=== PATIENT | male | born 1960 | race African-American/Black ===

== ENCOUNTER 2020-04-21 18:09 | Inpatient (IN) | payer OTHER ==
[~2020-04-21] VITALS: Ht 182.9 cm; Wt 77.0 kg
--- NOTE | 2020-04-21 18:09 | NUR ---
PT TO ROOM VIA EMS STRETCHER, HE REMAINS UNRESPONSIVE.
[2020-04-21 18:38] LABS: HEMATOCRIT 39.2 % (39.0-50.0); HEMOGLOBIN 12.2 g/dl (14.0-18.0); IMMATURE GRANULOCYTES 0.4 % (0.0-5.0); MEAN CELL VOLUME 95.4 fL CALC (80.0-100.0); MEAN CORPUSCULAR HGB 29.7 pG CALC (26.0-32.0); MEAN CORPUSCULAR HGB CONC 31.1 g/dL CAL (32.0-36.0); NEUT# 18.48 thou/uL (1.82-7.42); RED BLOOD COUNT 4.11 mill/uL (4.70-6.10); RED CELL DISTRI WIDTH 12.7 % (11.5-15.5)
--- NOTE | 2020-04-21 18:48 | NUR ---
FLUIDS INITIATED PT CLEANED AND CHANGED PT WAS COVERED IN URINE
[2020-04-21 18:51] LABS: ALBUMIN 4.1 g/dL (3.2-5.0); ALKALINE PHOSPHATASE 66 u/l (38-126); ANION GAP 15 (6-22 (CALC)); BILIRUBIN, TOTAL 0.5 mg/dL (0.0-1.4); BUN 13 mg/dL (9-20); BUN/CREATININE RATIO 12 (12-20 (CALC)); CARBON DIOXIDE 19 mmol/l (22-30); CHLORIDE 113 mmol/l (95-108); CPK 274 u/l (52-200); CREATININE 1.1 mg/dL (0.7-1.3); GFR > 60 ML/MIN (>=60 (CALC)); GFR FOR AFR.AMER. > 60 ML/MIN (>=60 (CALC)); LIPASE 60 u/l (23-300); POTASSIUM 4.2 mmol/l (3.5-5.1); SGOT/AST 25 u/l (17-59); SODIUM 143 mmol/l (137-146); TOTAL PROTEIN 7.6 g/dL (6.3-8.2)
[2020-04-21 20:18] LABS: INTERNATIONAL NORMALIZED RATIO 1.1 RATIO (0.7-1.3)
--- NOTE | 2020-04-21 20:40 | NUR ---
SPINTAL TAP INITIATED WITH MD AT BEDSIDE
--- NOTE | 2020-04-21 21:10 | NUR ---
LUMBAR SPINE TAP COMPLETED AT BEDSIDE AND COLLECTED. PT DID REQUIRE TWO PEOPLE TO HOLD PT STILL HE WAS MOVING A LOT AND NOT FOLLOWING DIRECTIONS.
--- NOTE | 2020-04-21 21:25 | NUR ---
ANTIBIOTICS WERE GIVEN LATE WE REQUIRED SPINAL TAP BEFORE INITIATING MEDICATIONS
--- NOTE | 2020-04-21 21:35 | NUR ---
NURSE P REQUESTED UPDATE BE CALLED TO [phone]
--- NOTE | 2020-04-21 22:00 | NUR ---
REPORT GIVEN TO MIGUEL A COFFEY
--- NOTE | 2020-04-21 22:15 | NUR ---
RECEIVED REPORT. PT RESTING. NO SEIZURE ACTIVITY. PT AROUSES AND FOLLOWS COMMANDS BUT REMAINS NON-VERBAL. OSCAR. GRASP EQUAL. RESP EASY REG. NAD. ANTIBIOTICS INFUSING. PT SHACKLED TO BED WITH 2 GUARDS AT BEDSIDE.
--- NOTE | 2020-04-21 23:33 | NUR ---
PT UNABLE TO GIVE URINE SAMPLE. ASHLEIGH YEAGER RN INSERTED BEAULIEU TO GRAVITY DRAINAGE. CLEAR YELLOW URINE. TO URINE METER.
[2020-04-22] VITALS (15 sets, daily range): BP systolic 110–137; BP diastolic 62–76
[2020-04-22 00:07] LABS: URINE BILIRUBIN - DIPSTICK NEGATIVE (NEGATIVE); URINE BLOOD DIPSTICK MODERATE (NEGATIVE); URINE COLOR YELLOW; URINE GLUCOSE - DIPSTICK NEGATIVE (NEGATIVE); URINE KETONE NEGATIVE (NEGATIVE); URINE NITRITE - DIPSTICK NEGATIVE (Negative); URINE PH 5.5 (4.5-8.0); URINE PROTEIN - DIPSTICK NEGATIVE (NEG-TRACE); URINE SPECIFIC GRAVITY >=1.030; URINE UROBILINOGEN - DIPSTICK 0.2 E.U./dL (0.2)
[2020-04-22 00:08] LABS: URINE BACTERIA FEW hpf; URINE EPITHELIAL CELLS FEW EPI/hpf (0-FEW); URINE LEUK ESTERASE NEGATIVE (NEGATIVE)
--- NOTE | 2020-04-22 01:02 | NUR ---
PENDING ADMISSION. COVID SWAB OBTAINED
--- NOTE | 2020-04-22 02:00 | NUR ---
NO CHANGE IN NEURO STATUS. PENDING ADMISSION
--- NOTE | 2020-04-22 03:00 | NUR ---
RECEIVED FROM ER VIA STETCHER INTO ICU BED 3. PATIENT IS AWAKE, LOOKS TO SPEAKER. NON-VERBAL AT THIS TIME. FOLLOWS DIRECTIONS AND ABLE TO ASSIST WITH MOVING FROM STRETCHER TO BED. RESP NON-LABORED. RA O2 ST 100% RESP EVEN AND ULABORED. LUNGS CLEAR THROUGHOUT. IV IN RAC WITH NS INFUSING AT 125 ML/HR. BEAULIEU DRAINS CLEAR YELLOW URINE. ELECTRIC METER TECHNICIAN SHOWS SR. EXPLAINED PLAN OF CARE. CALL RUTHERFORD IN REACH.PATIENT IS INMATE AT CTI 2 GUARDS IN ATTENDANCE. WILDT IS ON DROPLET PRECAUTIONS FO RR/O MENINGITIS.
--- NOTE | 2020-04-22 03:05 | NUR ---
REPORT TO ERLINDA GUEVARA/ICU
--- NOTE | 2020-04-22 03:30 | NUR ---
PT TO ICU VIA STRETCHER WITH BEAULIEU/PORTABLE MONITOR. SHACKLED TO BED BY 2 CUFFS. ESCORTED BY 2 SHELTER GUARDS.
--- NOTE | 2020-04-22 03:47 | NUR ---
PHARM CALLED BUT NOT ABLE TO PROFILE THE ZOVIRAX. CARMNE IN ICU NOTIFIED TO YAMIL GUEVARA.
--- NOTE | 2020-04-22 03:49 | NUR ---
REPORT RECEIVED. ANTIBIOTICS INFUSING.
--- NOTE | 2020-04-22 04:00 | NUR ---
VSS. MONITOR SR.
--- NOTE | 2020-04-22 06:00 | NUR ---
PATIENT CONTINUES TO REST QUIETLY. VSS. SR ON MONITOR. NS INFUSING AT 125 ML/HR. GOOD URINE OUTPUT.
[2020-04-22 06:05] LABS: HEMATOCRIT 34.2 % (39.0-50.0); IMMATURE GRANULOCYTES 0.6 % (0.0-5.0); MEAN CELL VOLUME 93.7 fL CALC (80.0-100.0); MEAN CORPUSCULAR HGB 30.1 pG CALC (26.0-32.0); MEAN CORPUSCULAR HGB CONC 32.2 g/dL CAL (32.0-36.0); NEUT# 17.18 thou/uL (1.82-7.42); RED BLOOD COUNT 3.65 mill/uL (4.70-6.10); RED CELL DISTRI WIDTH 12.4 % (11.5-15.5)
[2020-04-22 06:25] LABS: ALKALINE PHOSPHATASE 50 u/l (38-126); ANION GAP 10 (6-22 (CALC)); BUN 8 mg/dL (9-20); BUN/CREATININE RATIO 10 (12-20 (CALC)); CARBON DIOXIDE 22 mmol/l (22-30); CHLORIDE 110 mmol/l (95-108); CREATININE 0.8 mg/dL (0.7-1.3); GFR > 60 ML/MIN (>=60 (CALC)); GFR FOR AFR.AMER. > 60 ML/MIN (>=60 (CALC)); POTASSIUM 3.8 mmol/l (3.5-5.1); SODIUM 139 mmol/l (137-146)
[2020-04-22 06:32] LABS: ALBUMIN 3.2 g/dL (3.2-5.0); SGOT/AST 51 u/l (17-59)
--- NOTE | 2020-04-22 06:45 | NUR ---
REPORT RECEIVED FROM JOCELYN COFFEY. CARE ASSUMED.
--- NOTE | 2020-04-22 07:15 | NUR ---
PT RESTING IN BED WITH EYES CLOSED AT THIS TIME. PT OPENS EYES TO VERBAL STIMULI. PT IS ALERT AND ORIENTED TO SELF ONLY. IV PATENT X1. CALL LIGHT IN REACH. WILL CONTINUE TO MONITOR
--- NOTE | 2020-04-22 07:45 | NUR ---
PHONED [facility] SPOKE WITH NURSE LAMB. PT DOES HAVE A SEIZURE DISORDER AND IS ON KEPPRA 500MG BID. NURSE STATES THAT PT HAD K2 (STICK) ON PERSON AND WAS GIVEN NARCAN.
--- NOTE | 2020-04-22 08:08 | NUR ---
LAB AT BEDSIDE AT THIS TIME FOR REPEAT LACTIC.
--- NOTE | 2020-04-22 10:16 | NUR ---
PT IN BED WITH EYES CLOSED. RESP ARE EVEN AND UNLABORED. NO DISTRESS NOTED. CALL LIGHT IN REACH. WILL CONTINUE TO MONITOR.
--- NOTE | 2020-04-22 12:03 | NUR ---
S: DAVE QUIGLEY is a 60 M who presents with unknown fever and seizure. He has a history of seizures. All medications in patient's chart were reviewed. O: VS: BP 121/62 mm/Hg, P 72 bpm, RR 18 breaths/min, T 98.8 F W 77 kg, HT 72 inches, Scr= 0.8 mg/dL, CrCl= 109.6 ml/min A: Blood culture is pending. CSF culure prelimanry is no growth. P: Patient is on ceftriaxone 2g IV BID and acyclovir 800 mg IV Q8H. Vancomycin ordered for pharmacy to dose. Start Vancomycin 1g IV Q8H. Vancomycin trough is drawn before the 4th dose on 04/23/20 at 1330. Vancomycin goal trough is between 15-20 mcg/ml. Pharmacy will follow and or advise on antibiotics use as needed.
--- NOTE | 2020-04-22 12:07 | NUR ---
PT SET UP FOR NOON MEAL AT THIS TIME. PT SLEEPING AND NOT WANTING TO EAT. TRAY LEFT AT BEDSIDE. VSS ON MONITOR.
--- NOTE | 2020-04-22 13:04 | NUR ---
THIS NURSE INTO ROOM. PT AWAKENS TO VERBAL STIMULI. PT ABLE TO STATE NAME. MONTH AND DAY OF . PT KNOWS THAT HE IS IN A HOSPITAL AND THAT HE RESIDES IN A RETIREMENT, PT IS NOT ABLE TO GIVE NAME OF FACILITY NOR CITY AND STATE. PT UNABLE TO GIVE CURRENT MONTH AND YEAR. CALL LIGHT IN REACH. WILL CONTINUE TO MONITOR,.
--- NOTE | 2020-04-22 15:00 | NUR ---
PT RESTING IN BED WITH EYES CLOSED. RESP ARE EVEN AND UNLABORED. NO DISTRESS NOTED. CALL LIGHT IN REACH. WILL CONTINUE TOMONTIOR.
--- NOTE | 2020-04-22 16:00 | NUR ---
PT RESTING IN BED WITH EYE CLOSED. RESP ARE EVEN AND UNLABORED. NO DISTRESS NTOED.
--- NOTE | 2020-04-22 18:03 | NUR ---
PT SITTING UP IN BED EATING DINNER. RESP ARE EVEN AND UNLABORED. NO DISTRESS NOTED CALL LIGHT IN REACH. WILL CONTINUE TO MONITOR.
--- NOTE | 2020-04-22 20:30 | NUR ---
PATIENT IS AWAKE ON ROUNDS. SITTING IN BED IN SEMI-FOWLERS POSITION. ALERT AND ORIENTED X3. SPEECH IS CLEAR. FOLLOWS DIRECTIONS. VSS. RESP NON-LABORED. LUNGS CLEAR. NS INFUSING AT 125 ML/HR INTO RAC IV SITE. MONITOR SHOWS SR. EXPLAINED PLAN OF CAR.E DENIES NEEDS AT THIS TIME. CALL RUTHERFORD IN REACH.
--- NOTE | 2020-04-22 22:00 | NUR ---
WATCHING TV. NO COMPLAINTS VOICED.
--- NOTE | 2020-04-22 22:55 | NUR ---
TYLENOL 650 MG PO GIVEN FOR C/O HEADACHE.
[2020-04-23] VITALS (11 sets, daily range): BP systolic 126–148; BP diastolic 68–99
--- NOTE | 2020-04-23 | NUR ---
DOZES ON AND OFF. RESP NON-LABORED. VSS. SB-SR ON MONITOR.
--- NOTE | 2020-04-23 02:00 | NUR ---
NO CHANGES TO REPORT.
--- NOTE | 2020-04-23 04:00 | NUR ---
RESTING WITH EYES CLOSED. RESP EVEBN AND UNLABORED. VSS. SB-SR ON MONITOR. NS CONTINUES TO INFUSE AT 125 ML/HR INTO RAC IV SITE.
[2020-04-23 06:24] LABS: HEMATOCRIT 34.1 % (39.0-50.0); HEMOGLOBIN 10.9 g/dl (14.0-18.0); MEAN CELL VOLUME 93.9 fL CALC (80.0-100.0); RED BLOOD COUNT 3.63 mill/uL (4.70-6.10); RED CELL DISTRI WIDTH 12.4 % (11.5-15.5)
[2020-04-23 06:55] LABS: ALKALINE PHOSPHATASE 45 u/l (38-126); ANION GAP 9 (6-22 (CALC)); BUN 8 mg/dL (9-20); BUN/CREATININE RATIO 10 (12-20 (CALC)); CARBON DIOXIDE 24 mmol/l (22-30); CHLORIDE 111 mmol/l (95-108); CREATININE 0.8 mg/dL (0.7-1.3); GFR > 60 ML/MIN (>=60 (CALC)); GFR FOR AFR.AMER. > 60 ML/MIN (>=60 (CALC)); POTASSIUM 3.7 mmol/l (3.5-5.1); SGOT/AST 70 u/l (17-59); SODIUM 140 mmol/l (137-146); TOTAL PROTEIN 5.7 g/dL (6.3-8.2)
--- NOTE | 2020-04-23 07:06 | NUR ---
PT REPORT RECEIVED FROM PUBLISHING SYSTEMS ANALYST. AWAKENS EASILY, FOLLOWS COMMANDS, ALERT/ORIENTED X3, PER PUBLISHING SYSTEMS ANALYST NO SEIZURE ACTIVITY IN LAST 24 HOURS, PT REMAINS ON KEPPRA, PT DOES HAVE HX OF SEIZURES. 2 GUARDS IN ROOM AT THIS TIME, LEFT LEG AND RIGHT WRIST REMAINS IN SHACKLES. IV FLUIDS INFUSING AT 125CC/HR, IV SITE HEALTHY. DENIES ANY COMPLAINT AT THIS TIME.
[2020-04-23 07:20] LABS: BILIRUBIN, TOTAL 1.7 mg/dL (0.0-1.4)
[2020-04-23] MEDS ORDERED: KEPPRA500 M2 PO (08:21)
--- NOTE | 2020-04-23 16:19 | NUR ---
SPOKE WITH NURSE AT [facility] AND INFORMED THEM THAT IF PT REMAINED STABLE TONIGHT THAT HE WOULD MOST LIKELY BE GOING HOME TOMORROW. PTS VITAL SIGNS STABLE. GUARDS REMAIN AT BEDSIDE. NO SEIZURE ACTIVITY NOTED ON THIS SHIFT AT THIS TIME.
--- NOTE | 2020-04-23 17:40 | NUR ---
NO SEIZURE ACTIVITY OBSERVED SO FAR ON MY SHIFT, GUARDS REMAIN AT BEDSIDE, PT IS SHACKLED TO BED WITH ONE FOOT AND ONE HAND. SITTING UP IN BED EATING DINNER TRAY AT THIS TIME, VITAL SIGNS REMAIN STABLE, PT REMAINS ALERT/ORIENTED X3.
--- NOTE | 2020-04-23 18:33 | NUR ---
PT ASKED FOR TYLENOL FOR A HEADACHE AND WAS GIVEN 650 MG. TYLENOL PER PRN ORDER.
--- NOTE | 2020-04-23 20:05 | NUR ---
PATIENT IS AWAKE, ORIENTED TO NAME/PLACE. ON RA, NO SOB NOTED. NURSE ASSESSMENT PERFORMED. NO NEEDS AT THIS TIME. LEFT EXTREMETIES SHACKLED TO BED, GOOD CIRULATION NOTED. BEAULIEU CATHETER INTACT, URINE CLEAR/YELLOW. SELF REPOSITIONS. NO COMPLAINTS OR NEEDS AT THIS TIME. 2 GUARDS AT BEDSIDE.
[2020-04-24] VITALS: BP 148/81
--- NOTE | 2020-04-24 00:20 | NUR ---
PATIENT RESTING WITH BLANKET OVER HEAD, LAYS ON HIS RIGHT SIDE. 2 GUARDS AT BEDSIDE.
--- NOTE | 2020-04-24 01:50 | NUR ---
PATIENT IS AWAKE, CONVERSATES WITH GUARDS.
[2020-04-24 02:00] VITALS: BP 136/75
[2020-04-24 04:00] VITALS: BP 134/70
--- NOTE | 2020-04-24 05:33 | NUR ---
PATROL INSPECTOR QING IN ROOM TO DRAW BLOOD, PATIENT COOPERATED FOR THAT, ALL OF A SUDDEN PATIENT STARTED TO RAISE HIS VOICE AT THE PATROL INSPECTOR, PATIENT ASKED PATROL INSPECTOR IF HE WAS GOING TO BE DISCHARGED, PATROL INSPECTOR REPORTED TO HIM HE NEEDED TO CHECK WITH HIS NURSE, AND PATIENT BECAME UPSET. I WALKED IN ROOM AND ANSWERED HIS QUESTION, PATIENT CALMED DOWN. BEAULIEU CATHETER WAS DISCONTINUED. PATIENT ABLE TO TOLERATE, URINAL PROVIDED, PATIENT AGREES. GUARDS AT BEDSIDE.
[2020-04-24 06:05] LABS: HEMATOCRIT 35.8 % (39.0-50.0); HEMOGLOBIN 11.4 g/dl (14.0-18.0); MEAN CELL VOLUME 92.7 fL CALC (80.0-100.0); MEAN CORPUSCULAR HGB 29.5 pG CALC (26.0-32.0); MEAN CORPUSCULAR HGB CONC 31.8 g/dL CAL (32.0-36.0); RED BLOOD COUNT 3.86 mill/uL (4.70-6.10); RED CELL DISTRI WIDTH 12.1 % (11.5-15.5)
[2020-04-24 06:28] LABS: ALKALINE PHOSPHATASE 55 u/l (38-126); ANION GAP 10 (6-22 (CALC)); BILIRUBIN, TOTAL 2.1 mg/dL (0.0-1.4); BUN 11 mg/dL (9-20); BUN/CREATININE RATIO 15 (12-20 (CALC)); CARBON DIOXIDE 23 mmol/l (22-30); CHLORIDE 109 mmol/l (95-108); CREATININE 0.8 mg/dL (0.7-1.3); GFR > 60 ML/MIN (>=60 (CALC)); GFR FOR AFR.AMER. > 60 ML/MIN (>=60 (CALC)); POTASSIUM 3.7 mmol/l (3.5-5.1); SGOT/AST 122 u/l (17-59); SODIUM 138 mmol/l (137-146); TOTAL PROTEIN 5.9 g/dL (6.3-8.2)
--- NOTE | 2020-04-24 07:04 | NUR ---
REPORT RECEIVED FROM DOUGH BRAKER, NO SEIZURE ACTIVITY SINCE YESTERDAY, IV FLUIDS INFUSING, SITE HEALTHY.
[2020-04-24 07:06] VITALS: BP 128/72
[2020-04-24 08:14] VITALS: BP 156/82
--- NOTE | 2020-04-24 09:49 | NUR ---
CALLED AND SPOKE WITH [facility] AND GAVE THEM REPORT AND STATED WE WOULD BE DISCHARGING HIM SHORTLY. THEY ARE GOING TO SEND OVER SOME CLOTHES FOR DISCHARGE AND TRANSPORT
--- NOTE | 2020-04-24 10:15 | NUR ---
REMAINS WAITING ON STAFF FROM [facility] FOR DISCHARGE
--- NOTE | 2020-04-24 10:47 | NUR ---
DUE TO PHONE LINE CONNECTION PROBLEMS, UNABLE TO SPEAK WITH STAFF TO OBTAIN COURIER DRIVER ARRANGEMENTS FOR PT AND GUARDS
[2020-04-24 10:55] VITALS: BP 127/70
--- NOTE | 2020-04-24 12:11 | NUR ---
STAFF HERE FOR FOR PICKUP AND DISCHARGE.
--- NOTE | 2020-04-24 12:40 | NUR ---
PT DISCHARGED WITH PAPERWORK, GIVEN TO GUARD, PT VOICES UNDERSTANDING. DRESSSED, IV D/C'D AND PLACED IN W/C AND TAKEN THRU ER WAITING ROOM FOR TRANSFER BACK TO FACILITY. PT ALERT/ORIENTED X3, NO SEIZURE ACTIVITY
== END 2020-04-24 12:40 | DRG 872 ==
LOC: ED 18:09 → ED-I 04-22 00:22 → ED 04-22 00:37 → ICU 04-22 00:38
PROVIDERS: Emergency Medicine; Family Medicine; Internal Medicine; ADMIT Internal Medicine; ATTEND Internal Medicine
PROC: 009U3ZX Drainage of Spinal Canal, Percutaneous Approach, Diagnostic (ICD-10-PCS; principal; 2020-04-21)
DX: A41.9 Sepsis, unspecified organism (principal); G93.40 Encephalopathy, unspecified; E87.2 Acidosis; G40.909 Epilepsy, unspecified, not intractable, without status epilepticus; G44.40 Drug-induced headache, not elsewhere classified, not intractable; Z20.822 Contact with and (suspected) exposure to COVID-19; Z79.899 Other long term (current) drug therapy; Z91.041 Radiographic dye allergy status
CPT/HCPCS: J0133; J1953; Q3014

== ENCOUNTER 2020-08-14 09:10 | Emergency (ER) | payer OTHER ==
[~2020-08-14 09:10] MED LIST: KEPPRA500 M2 PO
[2020-08-14 10:15] LABS: GFR > 60 ML/MIN (>=60 (CALC)); GFR FOR AFR.AMER. > 60 ML/MIN (>=60 (CALC))
[2020-08-14 10:18] LABS: HEMATOCRIT 33.1 % (39.0-50.0); HEMOGLOBIN 10.7 g/dl (14.0-18.0); IMMATURE GRANULOCYTES 0.6 % (0.0-5.0); MEAN CELL VOLUME 92.7 fL CALC (80.0-100.0); MEAN CORPUSCULAR HGB CONC 32.3 g/dL CAL (32.0-36.0); NEUT# 17.59 thou/uL (1.82-7.42); RED BLOOD COUNT 3.57 mill/uL (4.70-6.10); RED CELL DISTRI WIDTH 12.9 % (11.5-15.5)
[2020-08-14 10:34] LABS: ALBUMIN 3.8 g/dL (3.2-5.0); ALKALINE PHOSPHATASE 56 u/l (38-126); ANION GAP 12 (6-22 (CALC)); BILIRUBIN, TOTAL 1.4 mg/dL (0.0-1.4); BUN 12 mg/dL (9-20); BUN/CREATININE RATIO 15 (12-20 (CALC)); CARBON DIOXIDE 18 mmol/l (22-30); CHLORIDE 109 mmol/l (95-108); CREATININE 0.8 mg/dL (0.7-1.3); ETHYL ALCOHOL 0 mg/dl (0-30); GFR > 60 ML/MIN (>=60 (CALC)); GFR FOR AFR.AMER. > 60 ML/MIN (>=60 (CALC)); LIPASE 50 u/l (23-300); POTASSIUM 3.6 mmol/l (3.5-5.1); SGOT/AST 26 u/l (17-59); SODIUM 135 mmol/l (137-146); TOTAL PROTEIN 7.2 g/dL (6.3-8.2)
[2020-08-14 10:43] LABS: INTERNATIONAL NORMALIZED RATIO 1.2 RATIO (0.7-1.3); PROTHROMBIN TIME 12.2 SECONDS (9.0-12.5)
[2020-08-14 10:44] LABS: CPK 245 u/l (52-200)
[2020-08-14 10:46] LABS: URINE BILIRUBIN - DIPSTICK NEGATIVE (NEGATIVE); URINE BLOOD DIPSTICK LARGE (NEGATIVE); URINE COLOR YELLOW; URINE GLUCOSE - DIPSTICK NEGATIVE (NEGATIVE); URINE KETONE NEGATIVE (NEGATIVE); URINE LEUK ESTERASE NEGATIVE (NEGATIVE); URINE PH 5.5 (4.5-8.0); URINE PROTEIN - DIPSTICK TRACE mg/dL (NEG-TRACE); URINE SPECIFIC GRAVITY >=1.030; URINE UROBILINOGEN - DIPSTICK 0.2 E.U./dL (0.2)
[2020-08-14 10:49] LABS: URINE NITRITE - DIPSTICK NEGATIVE (Negative)
[2020-08-14 10:50] LABS: URINE RBC 25-50 RBC/hpf (0-5)
[2020-08-14 10:55] LABS: MYOGLOBIN 413 ng/mL (0 - 121)
[2020-08-14 15:02] VITALS: BP 136/67
== END 2020-08-14 15:00 | disposition short-term general hospital (02) | DRG 871 ==
LOC: ED 09:10
PROVIDERS: Family Medicine
PROC: 0BH17EZ Insertion of Endotracheal Airway into Trachea, Via Natural or Artificial Opening (ICD-10-PCS; principal; 2020-08-14)
PROC: 02HV33Z Insertion of Infusion Device into Superior Vena Cava, Percutaneous Approach (ICD-10-PCS; 2020-08-14)
PROC: 009U3ZX Drainage of Spinal Canal, Percutaneous Approach, Diagnostic (ICD-10-PCS; 2020-08-14)
PROC: B01BZZZ Fluoroscopy of Spinal Cord (ICD-10-PCS; 2020-08-14)
PROC: 0T9B70Z Drainage of Bladder with Drainage Device, Via Natural or Artificial Opening (ICD-10-PCS; 2020-08-14)
DX: A41.9 Sepsis, unspecified organism (principal); J18.9 Pneumonia, unspecified organism; G40.909 Epilepsy, unspecified, not intractable, without status epilepticus; S00.83XA Contusion of other part of head, initial encounter; X58.XXXA Exposure to other specified factors, initial encounter; Y92.149 Unspecified place in prison as the place of occurrence of the external cause; Z20.822 Contact with and (suspected) exposure to COVID-19
CPT/HCPCS: J0133; J1953

== ENCOUNTER 2020-12-30 07:32 | Observation (INO) | payer OTHER ==
[~2020-12-30] VITALS: Ht 182.9 cm; Wt 65.0 kg
--- NOTE | 2020-12-30 07:45 | NUR ---
[facility] FROM BACKBOARD BY CONTROLLED LOG ROL WITH 3 STAFF
--- NOTE | 2020-12-30 07:55 | NUR ---
PT IN ROOM, SEEN BY PHYSICIAN, ALERT AND ORIENTED X2, CONFUSED AT WHAT HAPPENED AND WHERE HE IS BUT ANSWERS OTHER QUESTIONS APPROPRIATELY. ON MONITOR, SEIZURE PRECAUTIONS IN PLACE, GAURDS AT BEDSIDE
--- NOTE | 2020-12-30 08:40 | NUR ---
PT SEIZED AND WAS GIVEN ATIVAN PER MD, PT POST ICTAL
[2020-12-30 08:48] LABS: HEMOGLOBIN 12.6 g/dl (14.0-18.0); IMMATURE GRANULOCYTES 0.1 % (0.0-5.0); MEAN CELL VOLUME 93.2 fL CALC (80.0-100.0); MEAN CORPUSCULAR HGB 29.6 pG CALC (26.0-32.0); MEAN CORPUSCULAR HGB CONC 31.7 g/dL CAL (32.0-36.0); NEUT# 6.19 thou/uL (1.82-7.42); RED BLOOD COUNT 4.26 mill/uL (4.70-6.10); RED CELL DISTRI WIDTH 12.7 % (11.5-15.5)
[2020-12-30 08:50] LABS: HEMATOCRIT 39.7 % (39.0-50.0)
[2020-12-30 08:56] LABS: ALKALINE PHOSPHATASE 76 u/l (38-126); ANION GAP 11 (6-22 (CALC)); BILIRUBIN, TOTAL 0.6 mg/dL (0.0-1.4); BUN 11 mg/dL (9-20); BUN/CREATININE RATIO 12 (12-20 (CALC)); CARBON DIOXIDE 24 mmol/l (22-30); CHLORIDE 108 mmol/l (95-108); GFR > 60 ML/MIN (>=60 (CALC)); GFR FOR AFR.AMER. > 60 ML/MIN (>=60 (CALC)); POTASSIUM 4.5 mmol/l (3.5-5.1); SGOT/AST 22 u/l (17-59); SODIUM 138 mmol/l (137-146); TOTAL PROTEIN 7.2 g/dL (6.3-8.2)
[2020-12-30 09:15] LABS: PHENYTOIN (DILANTIN) < 3 ug/mL (10 - 20)
[2020-12-30 09:17] LABS: URINE BILIRUBIN - DIPSTICK NEGATIVE (NEGATIVE); URINE BLOOD DIPSTICK NEGATIVE (NEGATIVE); URINE COLOR YELLOW; URINE GLUCOSE - DIPSTICK NEGATIVE (NEGATIVE); URINE KETONE NEGATIVE (NEGATIVE); URINE LEUK ESTERASE NEGATIVE (NEGATIVE); URINE PROTEIN - DIPSTICK TRACE mg/dL (NEG-TRACE); URINE SPECIFIC GRAVITY 1.025; URINE UROBILINOGEN - DIPSTICK 0.2 E.U./dL (0.2)
[2020-12-30 09:21] LABS: URINE NITRITE - DIPSTICK NEGATIVE (Negative)
--- NOTE | 2020-12-30 09:40 | NUR ---
PT RESTING, SEIZURE PRECAUTIONS IN PLACE
--- NOTE | 2020-12-30 11:00 | NUR ---
PT IN NO DISTRESS AT THIS TIME
[2020-12-30] MEDS ORDERED: KEPPRA500 M2 PO (11:07)
[2020-12-30] MEDS ORDERED: DILANTIN100 MG PO (11:07)
--- NOTE | 2020-12-30 14:01 | NUR ---
PT SLEEPING,AOX2, CLEANED SCALP LACERATION AND SET UP FOR PATIENCE
--- NOTE | 2020-12-30 14:40 | NUR ---
RCIEVED FROM ERLINDA MCKEON
--- NOTE | 2020-12-30 14:55 | NUR ---
GAVE REPORT TO TESSA RN, PT TRANSPORTED TO FLOOR VIA STRETCHER, ALL BELONGINGS WITH PT AND 2 POLICE OFFICIERS BEDSIDE
--- NOTE | 2020-12-30 15:06 | NUR ---
PT ARRIVED TO [facility] ROOM 278 VIA STRETCHER ACCOMPAINED BY ER STAFF.PT FROM [facility]. PT IS A/O X3 WITH SOME CONFUSION. ASSESSMENT AND VITALS COMPLETED. RESPIRATIONS ARE EVEN AND UNLABORED ON ROOM AIR. LUNG SOUNDS ARE CLEAR. HEART RHYTHM NORMAL WITH TELE IN PLACE (4515) SR PER ER MONITORING. BOWEL SOUNDS ARE ACTIVE, LBM 12/29/20. PULSES STRONG. #22G LFA EMS INFUSING WITH IVF PER ORDERSM SITE REMAINS HEALTHY AND PATENT. LACERATION NOTED TO LEFT BACK OF HEAD, 4 PATIENCE NOTED. RIGHT ANKLE CUFFED TO BED. PT COMPLAINS OF 10/10 HEAD ACHE, TYLENOL ADMINISTERED.PT ORIENTED TO ROOM AND CALL SYSTEM.ALL SAFETY PRECAUTIONS ARE IN PLACE WITH CALL LIGHT IN REACH. MITALI X2 AT BEDSIDE. WILL CONTINUE TO MONITOR.
[2020-12-30 15:29] VITALS: BP 136/81
--- NOTE | 2020-12-30 16:46 | NUR ---
PT SLEEPING IN SEMI FOWLERS POSITION. TELE MONITORING IN PLACE. #22G RFA INFUSING WITH IVF PER ORDER, SITE REMAINS HEALTHY AND PATENT. NO SIGNS OF ANY PAINS OR DISCOMFORTS. ALL SAFETY PRECAUTIONS ARE IN PLACE WITH CALL LIGHT IN REACH. GUARDS X2 AT BEDSIDE. WILL CONTINUE TO MONITOR.
--- NOTE | 2020-12-30 17:06 | NUR ---
CYTOGENETICS LABORATORY MANAGER CALLED TO ROOM DUE TO PT FALLING. UPON ENTERING ROOM PT IS BACK IN BED, FALL WISTNESSED BY GUARDS. PT DENIES OF INJURING SELF. NO SIGN OF INJURY. PT REMAINS A/O X3 WITH SOME CONFUSION. GUARDS STATE HE WAS SLEEPING AND JUMPED UP TO WALK TO BATHROOM AND THEN FELL DUE TO BEING SHACKLED TO BED. ALL SAFETY PRECAUTIONS ARE IN PLACE WITH CALL LIGHT IN REACH. SIDE RAILS X3 UP. GUARDS APPLIED SHACKLES TO RONAL FEET. PT INSTRUCTED TO CALL WHEN HAVING TO VOID. PT VERBALIZED UNDERSTANDING.
[2020-12-30 19:00] VITALS: BP 108/66
--- NOTE | 2020-12-30 19:32 | NUR ---
PT IN BED SLEEPING, GUARDS X2 AT BEDSIDE. PT AWOKE TO MY VOICE, DENIED ANY DISTRESSES AT THIS TIME AND DENIED ANY OTHER NEEDS ALSO AT THIS TIME. CALL LIGHT IS LEFT W/IN PT'S REACH AND INSTRUCTED TO CALL ME IF ANY NEEDS ARISE. PT APPEARS VERY GROGGY, LOC TO SELF. PT IS SHACKLED AT THE FEET, WITH R.ANKLE SHACKLED TO THE BED AND R. HAND ALSO SHACKLED TO THE BED. GUARDS X2 AT BEDSIDE.
--- NOTE | 2020-12-30 20:19 | NUR ---
PT MEDICATED ORDERS PROVIDE. URINAL EMPTIED OF 400CC OF CLEAR URINE. PT SHACKLED TO BED AT RONAL ANKLES AND R.WRIST. GUARDS X2 AT BEDSIDE. PT WAS SLEEPING UPON MY ENTERING THE ROOM, AWOKE TO MY VOICE SLOWLY. ANSWERED TO SELF, APPROPRIATELY, WHEN ASKED WHERE HE WAS HE REPLIED, "BATHROOM" SPEECH IS GARBLED. NO S/O DISTRESS. DINNER TRAY UNTOUCHED AT BEDSIDE, I SHOWED IT TO THE PT AND OFFERED ASSISTANCE, DENIED WANTING TO EAT. URINAL REPLACED W/IN REACH. CALL LIGHT W/IN REACH. TV ON, LIGHTS TURNED DOWN.
[2020-12-31] VITALS: BP 112/71
--- NOTE | 2020-12-31 00:05 | NUR ---
JACK MACHINE OPERATOR REPORTED THAT THE PT WAS PULLING BP CUFF OFF AND REMOVED AUTO BRAKE TECHNICIAN. AGITATED IN RESPONSE TO V/S BEING TAKEN. SHACKLED TO THE BED AND GUARDS X2 AT BEDSIDE.
--- NOTE | 2020-12-31 01:13 | NUR ---
IVF REPLENISHED, PT AWOKE TO MY VOICE. SMALL AMOUNTS OF BLOOD VISUALIZED TO PILLOWCASE, INCISION W/PATIENCE X4 ASSESSED TO BE CLOSED WITH PATIENCE IN PLACE W/SMALL AMOUNT OF BLOOD DRAINING. COVERING FOR PILLOWCASE PROVIDED. PT REFUSED WRAP DRESSING FOR HEAD. PT USING URINAL, DENIES NEED OF ASSISTANCE, GUARDS X2 AT SIDE.
[2020-12-31 04:00] VITALS: BP 125/68
--- NOTE | 2020-12-31 04:18 | NUR ---
Pt again reportedly beligerant with guards and ENGRAVER SEALS upon ambulating to restroom. Pt reshackled to the bed at wrist x1 and ankle x1. Guards x2 at bedside. V/S assessed stable.
--- NOTE | 2020-12-31 04:31 | NUR ---
JOINERY FACTORY WORKER ENTERED THE ROOM WITH LAB TO ASK IF IT WAS OKAY IF WE RUBY LAB DRAWS, HE REPLIED "SURE" DENIED ANY NEEDS AT THIS TIME, PT APPEARED CALM AND POLITE AT THIS TIME. LAB IN WITH PT W/2X GUARDS.
[2020-12-31 05:57] LABS: HEMATOCRIT 39.3 % (39.0-50.0); HEMOGLOBIN 12.7 g/dl (14.0-18.0); MEAN CELL VOLUME 91.2 fL CALC (80.0-100.0); MEAN CORPUSCULAR HGB 29.5 pG CALC (26.0-32.0); MEAN CORPUSCULAR HGB CONC 32.3 g/dL CAL (32.0-36.0); RED BLOOD COUNT 4.31 mill/uL (4.70-6.10); RED CELL DISTRI WIDTH 12.7 % (11.5-15.5)
[2020-12-31 06:01] LABS: ANION GAP 10 (6-22 (CALC)); BUN 7 mg/dL (9-20); BUN/CREATININE RATIO 9 (12-20 (CALC)); CARBON DIOXIDE 24 mmol/l (22-30); CHLORIDE 108 mmol/l (95-108); CREATININE 0.8 mg/dL (0.7-1.3); GFR > 60 ML/MIN (>=60 (CALC)); GFR FOR AFR.AMER. > 60 ML/MIN (>=60 (CALC)); MAGNESIUM 1.8 mg/dL (1.6-2.3); POTASSIUM 3.9 mmol/l (3.5-5.1); SODIUM 137 mmol/l (137-146)
--- NOTE | 2020-12-31 07:00 | NUR ---
RECIEVED REPORT FROM ERLINDA FORBES
[2020-12-31 07:36] VITALS: BP 126/70
--- NOTE | 2020-12-31 07:36 | NUR ---
PT RESTING IN SEMI FOWLERS POSITION. PT IS A/OX3 WITH SOME CONFUSION. PT FROM [facility]. ASSESSMENT AND VITALS COMPLETED. BP 126/70, HR 78, O2 99% ON ROOM AIR. RESPIRATIONS ARE EVEN AND UNLABORED WITH NO DISTRESS NOTED. LUNG SOUNDS ARE CLEAR. HEART RHYTHM NORMAL WITH TELE IN PLACE, SR PER ER MONITORING. BOWEL SOUNDS ARE ACTIVE. #22G LFA INFUSING WITH IVF PER ORDER, SITE REMAINS HEALTHY AND PATENT. SKIN INTACT. BLE AND RIGHT ARM SHACKLED TO BED. PT COMPLAINS OF 5/10 HEADACHEM TYLENOL TO BE ADMINISTERED. PT DENIES OF ANY ADDIITONAL NEEDS. ALL SAFETY PRECAUTIONS ARE IN PLACE WITH CALL LIGHT IN REACH.GUARDS X2 AT BEDSIDE. WILL CONTINUE TO MONITOR.
--- NOTE | 2020-12-31 08:48 | NUR ---
TELE MONITORING REMOVED PER ORDER. ER NOTIFIED.
--- NOTE | 2020-12-31 09:22 | NUR ---
DR ENRIQUEZ AT BEDSIDE
[2020-12-31] MEDS ORDERED: KEPPRA500 M2 PO (11:33)
[2020-12-31] MEDS ORDERED: DILANTIN100 MG PO (11:33)
--- NOTE | 2020-12-31 12:17 | NUR ---
PT EDUCATED ON DC INSTRUCTIONS AND NEW MEDICAITONS. PT VERBALIZED UNDERSTANDING. IV REMOVED WITH CATH STILL INTACT. WAITING FOR [facility] TRANSPORTATION TO ARRIVE. ALL SAFTEY PRECAUTIONS ARE IN PLACE WITH CALL LIGHT IN REACH. WILL CONTINUE TO MONITOR.
[2020-12-31 12:35] VITALS: BP 142/71
--- NOTE | 2020-12-31 13:15 | NUR ---
Discharge instructions given. Patient verbalizes understanding of same. [facility] All belongings sent with pt. PT DC TO [facility] IN STABLE CONDITION ACCOMPAINED BY CHRISTIANO AND BELKYS CRENSHAW VIA WHEELCHAIR WITH ALL DC INSTRUCTIONS AND SCRIPTS.
--- NOTE | 2020-12-31 14:15 | NUR ---
Chart review completed: pt not appropriate for OT eval at this moment.
== END 2020-12-31 13:15 | DRG 101 ==
LOC: ED 07:32 → ED-I 10:20 → ED 11:06 → MS2 11:07
PROVIDERS: Emergency Medicine; Nurse Practitioner; ADMIT Internal Medicine; ATTEND Internal Medicine
PROC: 0HQ0XZZ Repair Scalp Skin, External Approach (ICD-10-PCS; principal; 2020-12-30)
DX: G40.409 Other generalized epilepsy and epileptic syndromes, not intractable, without status epilepticus (principal); S01.01XA Laceration without foreign body of scalp, initial encounter; T42.76XA Underdosing of unspecified antiepileptic and sedative-hypnotic drugs, initial encounter; W18.2XXA Fall in (into) shower or empty bathtub, initial encounter; Y93.E1 Activity, personal bathing and showering; Y92.142 Bathroom in prison as the place of occurrence of the external cause; Z91.128 Patient's intentional underdosing of medication regimen for other reason; Z20.822 Contact with and (suspected) exposure to COVID-19
CPT/HCPCS: G0378; J1953; J2060